=== PATIENT | male | born 1985 | race Hispanic/Latino ===

== ENCOUNTER 2019-02-09 18:42 | Emergency (ER) | payer SELFPAY ==
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
[2019-02-09] MEDS ORDERED: NORCO 5/325 PO ONE (20:08)
[2019-02-09] MEDS ORDERED: IBUPROFEN PO ONE (20:08)
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
[2019-02-09 20:18] LABS: Basophils # (Auto) 0.2 K/mm3 (0.0-0.1); Basophils % (Auto) 1.4 % (0.0-1.8); Eosinophils # (Auto) 0.3 K/mm3 (0.0-0.4); Eosinophils % (Auto) 2.9 % (0.0-4.3); Hematocrit 46.2 % (35.5-45.6); Hemoglobin 14.8 gm/dl (11.8-15.2); Lymphocytes # (Auto) 2.5 K/mm3 (1.2-5.4); Lymphocytes % (Auto) 21.7 % (13.4-35.0); Mean Corpuscular HGB Conc 32 % (32-34); Mean Corpuscular Volume 90 fl (84-94); Monocytes # (Auto) 0.8 K/mm3 (0.0-0.8); Monocytes % (Auto) 6.8 % (0.0-7.3); Platelet Count 333 K/mm3 (140-440); Red Blood Count 5.13 M/mm3 (3.65-5.03)
[2019-02-09 20:43] LABS: Albumin 3.8 g/dL (3.9-5); Calcium 8.7 mg/dL (8.4-10.2)
[2019-02-09 21:07] VITALS: BP 131/87
== END 2019-02-09 21:45 | disposition home or self-care (01) ==
LOC: ED 18:42
DX: M25.511 Pain in right shoulder (principal); E11.22 Type 2 diabetes mellitus with diabetic chronic kidney disease; N18.3 Chronic kidney disease, stage 3 (moderate)
CPT/HCPCS: 36415; 80053; 85025; 93005; 93010